=== PATIENT | female | born 1995 | race African-American/Black ===

== ENCOUNTER 2016-06-17 23:09 | Emergency (ER) | payer MEDICAID, OTHER, SELFPAY ==
[2016-06-17] MEDS ORDERED: Ondansetron HCl/PF 4 MG/2 ML Vial ONE (23:32)
[2016-06-17] MEDS ORDERED: Sodium Chloride 0.9% 1,000 ML ONE (23:32)
[2016-06-17] MEDS ORDERED: Pantoprazole 40 MG VIAL ONE (23:32)
[2016-06-17] MEDS ORDERED: Acetaminophen 500 MG TAB ONE (23:32)
[2016-06-17 23:42] LABS: Bilirubin Negative (Negative); Blood, Urine Negative (Negative); Glucose, Urine (Dipstick) Negative (Negative); Ketone, Urine Trace mg/dL (Negative); Nitrite Negative (Negative); Protein, Urine (Dipstick) Negative (Neg-Trace); Urobilinogen 0.2 mg/dL (0.2-1.0)
[2016-06-17 23:43] LABS: RBC/HPF None Seen HPF (0-3)
[2016-06-17 23:44] LABS: Bacteria/HPF 2+ HPF (None Seen)
[2016-06-17 23:51] LABS: Hematocrit 34.5 % (36.0-47.0); Mean Platelet Volume 7.1 fL (7.4-10.4); Neutrophil 50 % (42-75); Reactive Lymphocytes 3 % (0-10); Red Blood Cell (RBC) Count 4.33 mill/uL (4.20-5.40); White Blood Cell (WBC) Count 11.8 thou/uL (4.8-10.8)
[2016-06-18 00:02] LABS: ALT (SGPT) 15 U/L (0-55); AST (SGOT) 13 U/L (5-34); Alkaline Phosphatase 60 U/L (40-150); Anion Gap 14 mmol/L (10-20); BUN (Urea Nitrogen) 11 mg/dL (7.0-18.7); Bilirubin, Total 0.2 mg/dL (0.2-1.2); Calc. Creatinine Clearance 0 mL/min (70-130); Calcium 9.4 mg/dL (7.8-10.44); Carbon Dioxide 24 mmol/L (22-29); Chloride 107 mmol/L (98-107); Estimated GFR-MDRD 90; Globulin 3.7 g/dL (2.4-3.5); Lipase 36 U/L (8-78); Protein, Total 7.7 g/dL (6.0-8.3)
--- NOTE | 2016-06-18 00:47 | PICIS ---
[facility] EMERGENCY RECORD TRIAGE (23:16 EPIE) TRIAGE NOTES: Pt reports n/v/d since last night. Pt has vomited 3 times total and est 6 times diarrhea. Last vomit was 3 hours ago. Pt reports abdominal cramping with diarrhea. (23:16 EPIE) PATIENT: NAME: Rachell Smith, AGE: 21, GENDER: female, : Mon1995, TIME OF GREET: MonJun 17, 2016 23:10, PREFERRED LANGUAGE: Polish, ETHNICITY: Not or , ECODE BILLING MAP: [facility], SSN: [id number], Zip Code: [address], KG WEIGHT: 92.99, PHONE: , , , PERSON ID: [id number], PCP: none. (23:16 EPIE) COMPLAINT: VOMITING; DIARRHEA. (23:16 EPIE) ADMISSION: URGENCY: 4 Non Urgent, ADMISSION SOURCE: Home, TRANSPORT: CAR, BED: TRIAGE. (23:16 EPIE) TRIAGE SCREENING: Patient denies suicidal ideation, Patient denies presence of domestic violence. (23:18 EPIE) TREATMENTS IN PROGRESS: Treatments given Prehospital: none. (23:18 EPIE) PROVIDERS: TRIAGE NURSE: Laura Benton RN. (23:16 EPIE) VITAL SIGNS: BP 131/82, Pulse 86, Resp 20, (Non-Labored), Temp 97.9, (Oral), Pain 7, O2 Sat 99, on Room Air, Time 06/17/2016 23:14. (23:14 EPIE) KNOWN ALLERGIES No Known Drug Allergies CURRENT MEDICATIONS (23:17 EPIE) labetalol: TABLET : Strength - 100 mg : ORAL Patient Dose: UNK. VITAL SIGNS VITAL SIGNS: BP: 131/82, Pulse: 86, Resp: 20 (Non-Labored), Temp: 97.9 (Oral), Pain: 7, O2 sat: 99 on Room Air, Time: 06/17/2016 23:14. (23:14 EPIE) BP: 113/75, Pulse: 76, Resp: 18 (Non-Labored), Temp: 97.5 (Oral), Pain: 4, O2 sat: 100 on Room Air, Time: 06/18/2016 00:40. (Sat Jun 18, 2016 00:40 EPIE) NURSING ASSESSMENT: ABDOMEN (23:20 EPIE) CONSTITUTIONAL: Patient arrives ambulatory, Gait steady, History obtained from patient, Patient appears, uncomfortable, Patient cooperative, Patient alert, Oriented to person, place and time, Skin warm, Skin dry, Skin normal in color, Mucous membranes pink, Mucous membranes moist, Patient is well-groomed, Pt reports n/v/d since last night. Pt has vomited 3 times total and est 6 times diarrhea. Last vomit was 3 hours ago. Pt reports abdominal cramping with diarrhea. PAIN: cramping pain, diffusely, Onset of pain &a-1R&a+25V*p+0X*a3381F*c202B*c15G*c2P*p-0X&a-25V&a+1R Name: Rachell Smith : 1995 F21 MedRec: [id number] AcctNum: [id number] Prepared: Sat Jun 18, 2016 00:56 by Interface Page 1 of 11 pMD [facility] EMERGENCY RECORD 06/16/2016, intermittent, on a scale 0-10 patient rates pain as 7. ABDOMEN: Abdomen assessment findings include abdomen symmetrical, Abdomen soft, Associated with nausea, Associated with vomiting, history of vomiting, Number of times: 3, Associated with diarrhea, loose, Number of episodes: 6. LMP: First day last menstrual period, Last period started on 06/07/2016. GENITOURINARY FEMALE: no associated urinary complaints. NURSING PROCEDURE: DISCHARGE NOTE (Sat Jun 18, 2016 00:41 EPIE) DISCHARGE: Patient discharged to home, ambulating without assistance, driving self, unaccompanied, Summary of Care printed/ provided, Discharge instructions given to patient, Simple or moderate discharge teaching performed, Prescriptions given and instructions on side effects given, Name of prescription(s) given: macrobid, zofran, pepcid, Above person(s) verbalized understanding of discharge instructions and follow-up care. BELONGINGS: Belongings and valuables with patient upon arrival to the Emergency Department include:, Belongings and valuables with patient at time of discharge include:, Belongings remain with patient, Valuables remain with patient. NURSING PROCEDURE: IV PATIENT IDENITIFIER: Patient actively involved in identification process, Patient's identity verified by patient stating name, Patient's identity verified by patient stating date, Patient's identity verified by hospital ID bracelet. (23:35 [facility]) IV SITE 1: IV established, to the left antecubital, using a 20 gauge catheter, in one attempt, IV site prepped with Chloroprep, Saline lock established, Flushed with normal saline (mls): 10mLs, Labs drawn at time of placement, labeled in the presence of the patient and sent to lab, Notes: IV site C/D/I. no pain, redness, or swelling. IV start kit/extension tubing used. (23:35 [facility]) NOTES: Notes: IV DC with catheter intact. Pressure and dressing applied. (Sat Jun 18, 2016 00:40 EPIE) SAFETY: Side rails up, Cart/Stretcher in lowest position, Call light within reach, Hospital ID band on. (23:35 [facility]) NURSING PROCEDURE: NURSE NOTES NURSES NOTES: Notes: Patient resting with RR even and unlabored. No new complaints at this time. IV fluids infusing. Awaiting lab results. Warm blanket given for comfort and lights dimmed. Will give Tylenol after nausea medication has worked. (23:42 EPIE) Notes: Patient resting with RR even and unlabored. No new complaints at this time.Pt reports no nausea at this time and decreased abdominal cramping. NAD. ERMD talking with patient at this time. (Sat Jun 18, 2016 00:27 EPIE) &a-1R&a+25V*p+0X*x9616T*c202B*c15G*c2P*p-0X&a-25V&a+1R Name: Rachell Smith Elaine : 1995 F21 MedRec: [id number] AcctNum: [id number] Prepared: Sat Jun 18, 2016 00:56 by Interface Page 2 of 11 pMD [facility] EMERGENCY RECORD NURSING PROCEDURE: URINE COLLECTION (23:30 [facility]) PATIENT IDENTIFIER: Patient actively involved in identification process, Patient's identity verified by patient stating name, Patient's identity verified by patient stating date, Patient's identity verified by hospital ID bracelet. URINE COLLECTION FEMALE: Urine collected by void, urine yellow in color, and clear, Specimen labeled in the presence of the patient and sent to lab. SAFETY: Side rails up, Cart/Stretcher in lowest position, Call light within reach, Hospital ID band on. ORDER DETAILS Order Name: CBC with Differential, Status: Active, Time: 23:29 06/17/2016, User: [email or web address], - Ordered for: MD Liao John, - Entered by: MD Liao John - MonJun 17, 2016 23:29, - Quantity: 1, Order Name: Comprehensive Metabolic Panel, Status: Active, Time: 23:29 06/17/2016, User: KENDRA, - Ordered for: MD Liao John, - Entered by: MD Liao John - MonJun 17, 2016 23:29, - Quantity: 1, Order Name: Culture, Urine, Status: Active, Time: 00:36 06/18/2016, User: KENDRA, - Ordered for: MD Liao John, - Entered by: MD Liao John - [facility] [[email or web address]] Jun 18, 2016 00:36, - Quantity: 1, Order Name: Lipase, Status: Active, Time: 23:29 06/17/2016, User: KENDRA, - Ordered for: MD Liao John, - Entered by: MD Liao John - MonJun 17, 2016 23:29, - Quantity: 1, Order Name: Test, Urine (BHCG), Status: Active, Time: 23:29 06/17/2016, User: KENDRA, - Ordered for: MD Liao John, - Entered by: MD Liao John - MonJun 17, 2016 23:29, - Quantity: 1, Order Name: SALINE LOCK, Status: Done, Time: 23:39 06/17/2016, User: PETEY, - Ordered for: MD Liao John, - Entered by: MD Liao John - MonJun 17, 2016 23:29, - Quantity: 1, Order Name: Urinalysis w/ Rflx Microscopic, Status: Active, Time: 23:29 06/17/2016, User: [email or web address], - Ordered for: MD Liao John, - Entered by: MD Liao John - MonJun 17, 2016 23:29, - Quantity: 1. MEDICATION ADMINISTRATION SUMMARY &a-1R&a+25V*p+0X*m4588F*c202B*c15G*c2P*p-0X&a-25V&a+1R Name: Rachell Smith : 1995 F21 MedRec: [id number] AcctNum: [id number] Prepared: [facility] [[email or web address] Jun 18, 2016 00:56 by Interface Page 3 of 11 pMD [facility] EMERGENCY RECORD Drug Name: acetaminophen oral, Dose Ordered: 1000 mg, Route: Oral, Status: Given, Time: 23:51 06/17/2016, Drug Name: Protonix intravenous, Dose Ordered: 40 mg, Route: IV Push, Status: Given, Time: 23:39 06/17/2016, Drug Name: Zofran intravenous, Dose Ordered: 4 mg, Route: IV Push, Status: Given, Time: 23:37 06/17/2016, Drug Name: Normal Saline, Dose Ordered: 1000 mL, Route: IV Fluid Infusion, Status: Given, Time: 23:37 06/17/2016, Detailed record available in Medication Service section. MEDICATION SERVICE acetaminophen oral: Order: acetaminophen oral (acetaminophen) - Dose: 1000 mg : Oral Schedule: Now Ordered by: Jorge Luis Liao MD Entered by: Jorge Luis Liao MD MonJun 17, 2016 23:30 , Acknowledged by: Laura Benton RN MonJun 17, 2016 23:42 Documented as given by: Laura Benton RN MonJun 17, 2016 23:51 Patient, Medication, Dose, Route and Time verified prior to administration. Amount given: 1g, Site: Medication administered P.O., Correct patient, time, route, dose and medication confirmed prior to administration, Patient advised of actions and side-effects prior to administration, Allergies confirmed and medications reviewed prior to administration. Normal Saline: Order: Normal Saline (0.9 % sodium chloride) - Dose: 1000 mL : IV Fluid Infusion Schedule: Now Ordered by: Jorge Luis Liao MD Entered by: Jorge Luis Liao MD MonJun 17, 2016 23:29 Documented as given by: Laura Benton RN MonJun 17, 2016 23:37 Patient, Medication, Dose, Route and Time verified prior to administration. Amount given: 1L, IV SITE #1 IV fluids established for hydration, IV SITE #1 into left antecubital, IV SITE #1 1st bag hung, amount 1 Liter hung, IV SITE #1 bolus of 1000 ml established, via primary tubing, Catheter placement confirmed via flush prior to administration, IV site without signs or symptoms of infiltration during medication administration, No swelling during administration, No drainage during administration, IV flushed after administration, Correct patient, time, route, dose and medication confirmed prior to administration, Patient advised of actions and side-effects prior to administration, Allergies confirmed and medications reviewed prior to administration. : Follow Up : Response assessment performed, No signs or symptoms of allergic reaction noted, _IV SITE #1:_, IV fluid infusion discontinued, on MonJun 18, 2016 00:27, 50 minutes, ., Total amount infused: 1L, IV Line flushed after administration. (MonJun 18, 2016 00:27 EPIE) &a-1R&a+25V*p+0X*b9161K*c202B*c15G*c2P*p-0X&a-25V&a+1R Name: Rachell Smith Elaine : 1995 F21 MedRec: [id number] AcctNum: [id number] Prepared: MonJun 18, 2016 00:56 by Interface Page 4 of 11 D [facility] EMERGENCY RECORD Protonix intravenous: Order: Protonix intravenous (pantoprazole sodium) - Dose: 40 mg : IV Push Schedule: Now Ordered by: Jorge Luis Liao MD Entered by: Jorge Luis Liao MD MonJun 17, 2016 23:30 Documented as given by: Laura Benton RN MonJun 17, 2016 23:39 Patient, Medication, Dose, Route and Time verified prior to administration. Amount given: 40mg, IV SITE #1 IVP, initial medication, Slowly, Catheter placement confirmed via flush prior to administration, IV site without signs or symptoms of infiltration during medication administration, No swelling during administration, No drainage during administration, IV flushed after administration, Correct patient, time, route, dose and medication confirmed prior to administration, Patient advised of actions and side-effects prior to administration, Allergies confirmed and medications reviewed prior to administration. Zofran intravenous: Order: Zofran intravenous (ondansetron HCl) - Dose: 4 mg : IV Push Schedule: Now Ordered by: Jorge Luis Liao MD Entered by: Jorge Luis Liao MD MonJun 17, 2016 23:29 Documented as given by: Laura Benton RN MonJun 17, 2016 23:37 Patient, Medication, Dose, Route and Time verified prior to administration. Amount given: 4mg, IV SITE #1 IVP, initial medication, Slowly, Catheter placement confirmed via flush prior to administration, IV site without signs or symptoms of infiltration during medication administration, No swelling during administration, No drainage during administration, IV flushed after administration, Correct patient, time, route, dose and medication confirmed prior to administration, Patient advised of actions and side-effects prior to administration, Allergies confirmed and medications reviewed prior to administration. HPI NAUSEA/VOMITING/DIARRHEA (23:31 JOHE) CHIEF COMPLAINT: Patient presents for evaluation of nausea, Patient presents for evaluation of vomiting, Patient presents for evaluation of diarrhea. HISTORIAN: History provided by patient, Patient reports since last night around 2300, she has had 4 episodes of vomiting clear liquid, without blood or bile. Vomiting has been followed by approx. 6 episodes of loose stools, without blood or melena. Patient also reports intermittent, crampy, upper abdominal pain without radiation or migration of the pain. No exacerbating/relieving factors, and patient denies additional symptoms including F&C, urinary symptoms, vaginal bleeding and discharge. Patient reports some ill contacts with, "a stomach bug," at work. No travel or change in diet, no trauma. LOCATION FEMALE: Symptoms are localized, most severe in the upper abdomen, no radiation, No migration of pain. QUALITY: Pain is dull in nature, described &a-1R&a+25V*p+0X*u8240C*c202B*c15G*c2P*p-0X&a-25V&a+1R Name: Rachell Smith Elaine : 1995 F21 MedRec: [id number] AcctNum: [id number] Prepared: Sat Jun 18, 2016 00:56 by Interface Page 5 of 11 pMD [facility] EMERGENCY RECORD as cramping. SEVERITY: Maximum severity of symptoms moderate, Currently symptoms are moderate. TIME COURSE: Gradual onset of symptoms, 1, days priror to arrival, There has been no change in the patient's symptoms over time, are intermittent. ASSOCIATED WITH FEMALE: No associated recent antibiotic use, No associated bright red blood per rectum, No associated chills, No associated constipation, Associated with diarrhea, No associated fever, No associated flank pain, No associated groin pain, No associated hematemesis, No associated hematuria, No associated loss of appetite, No associated melena, Associated with nausea, No associated night sweats, No associated trauma, No associated recent travel, No associated inability to tolerate oral intake, No associated urinary tract infection signs or symptoms, Associated with vomiting, No associated vaginal discharge, No associated vaginal bleeding, No associated weight change, Denies any other complaints. EXACERBATED BY: Patient's condition exacerbated by food. RELIEVED BY: Patient's condition relieved by nothing because patient has not tried anything for relief. ROS (23:35 JOHE) CONSTITUTIONAL: Historian denies chills, denies fatigue, denies fever, denies lethargy, denies malaise, denies weight loss. EYES: Historian denies eye pain, denies vision changes. ENT: Historian denies drooling, denies otalgia, denies rhinorrhea, denies sore throat. CARDIOVASCULAR: Historian denies chest pain, denies syncope, denies palpitations. RESPIRATORY: Historian denies cough, denies shortness of breath, denies wheezing. GI: Historian reports abdominal pain, denies constipation, reports diarrhea, denies hematemesis, denies hematochezia, denies melena, reports nausea, reports vomiting. GENITOURINARY FEMALE: Historian denies dysuria, denies frequency, denies hematuria, denies urgency, denies urine output changes, denies vaginal bleeding, denies vaginal discharge. MUSCULOSKELETAL: Historian denies arthralgias, denies back pain, denies myalgias, denies neck pain. SKIN: Historian denies rash, denies skin changes. NEUROLOGIC: Historian denies confusion, denies dizziness, denies focal weakness, denies gait changes, denies headache, denies seizures. PSYCHIATRIC: Historian denies alcohol abuse, denies drug abuse. NOTES: All systems reviewed, negative except as described above. PAST MEDICAL HISTORY (23:18 EPIE) MEDICAL HISTORY: Flu vaccine not up to date, Tetanus not up to date, Pneumococcal vaccine not up to date. Hypertension with &a-1R&a+25V*p+0X*b0655I*c202B*c15G*c2P*p-0X&a-25V&a+1R Name: Rachell Smith : 1995 F21 MedRec: [id number] AcctNum: [id number] Prepared: Sat Jun 18, 2016 00:56 by Interface Page 6 of 11 pMD [facility] EMERGENCY RECORD . FEMALE SURGICAL HISTORY: Surgical history of section, Pilonidal cyst removed, Abscessx2 with general anesthesia, Surgical history of tonsillectomy. PSYCHIATRIC HISTORY: Psychiatric history includes, anxiety, depression, Psychiatric history includes previous inpatient psychiatric admissions, Date of last admission: 05/2013, Facility: [facility]. SOCIAL HISTORY: Patient denies alcohol use, Patient is a former drug user, abused marijuana, Patient currently uses tobacco, smokes cigarettes, Patient smokes ocassionally. PHYSICAL EXAM (23:36 JOHE) CONSTITUTIONAL: Vital signs reviewed, Patient appears non toxic, Patient alert and oriented to person, place and time, Appears well and comfortable, in NAD. Well-hydrated, cap refill < 2 sec, moist oral mucosal, good skin turgor. HEAD: Head exam normal, Head exam included findings of head atraumatic, normocephalic. EYES: Eye exam normal, Eye exam included findings of eyelids normal to inspection, Pupils equally round and reactive to light, Extraocular muscles intact, Conjunctiva normal. ENT: ENT exam normal, Pharynx exam normal, not injected, no swelling, symmetrical, Uvula exam normal, midline, no edema, Tonsil exam normal, not enlarged, no exudates, Mouth exam normal, mucous membranes moist, no drooling, no lesions, no lacerations, no tongue elevation. NECK: Neck exam normal, Neck exam included findings of normal range of motion, Trachea midline. RESPIRATORY CHEST: Respiratory and chest exam normal, Respiratory exam included findings of no respiratory distress, Breath sounds clear, No wheezing, No rales, No rhonchi, Breath sounds not absent, Breath sounds not diminished, Chest exam included findings of chest movement symmetrical, CTAB. CARDIOVASCULAR: Cardiovascular assessment normal, Cardiovascular exam included findings of heart rate regular rate and rhythm, Heart sounds normal, Pedal pulses normal, RRR, no R/M/G. + pulses all ext., no edema. ABDOMEN FEMALE: Abdominal exam included findings of abdomen tender, Bowel sounds normal, no distension, no mass, no pulsatile masses, no peritoneal signs, no rigidity, no guarding, no rebound, Soft, ND, mildly TTP epigastrium and periumbilical without guarding or rebound TTP. + BS, no masses or pulsations, no CVAT. No RUQ or RLQ tenderness. BACK: Back exam normal, Back exam included findings of normal inspection, range of motion normal, no costovertebral angle tenderness. UPPER EXTREMITY: Upper extremity exam normal, Upper extremity exam included findings of inspection normal, Range of motion normal, Radial pulse normal. &a-1R&a+25V*p+0X*w2395N*c202B*c15G*c2P*p-0X&a-25V&a+1R Name: Rachell Smith Elaine : 1995 F21 MedRec: [id number] AcctNum: [id number] Prepared: [facility] [[email or web address] Jun 18, 2016 00:56 by Interface Page 7 of 11 pMD [facility] EMERGENCY RECORD LOWER EXTREMITY: Lower extremity exam normal, Lower extremity exam included findings of inspection normal, Range of motion normal, Posterior tibial pulse normal, Pedal pulse normal, no edema, no calf tenderness, no palpable cords. NEURO: Neuro exam normal, [place] coma scale 15, Neuro exam findings include patient oriented to person, place and time, Speech normal, Gait normal, Cranial nerves intact, no focal motor deficits, no focal sensory deficits. SKIN: Skin exam normal, Skin exam included findings of skin warm, dry, and normal in color, no rash. LAB INTERPRETATION (Sat Jun 18, 2016 00:38 JOHE) INTERPRETATION: CBC abnormal, White blood cell count elevated, Hemoglobin decreased, Hematocrit decreased, Neutrophils normal, Chemistry normal, Liver functions normal, Urinalysis abnormal, positive for leukocytes, positive for bacteria, positive for ketones, Urine HCG negative. EVENTS TRANSFER: Triage to Emergency Triage. (23:17 EPIE) Emergency Triage to Emergency Room -03. (23:17 EPIE) Removed from Emergency Emergency Room -03. (Sat Jun 18, 2016 00:44 EPIE) DOCTOR NOTES (Sat Jun 18, 2016 00:36 JOHE) RE-EVALUATION: The patient's condition has improved. TEXT: Pt. reports nausea gone, and cramping improved. Tolerated PO liquids in ED. Abd. soft, ND, mildly TTP epigastrium without guarding or rebound TTP. + BS. Discussed results, and patient feels well enough to go home without imaging. Discussed that in the absence of imaging, patient will need close outpatient f/u for re-assessment if abdominal cramping persists (24h), and immediate return to ED for any new/worsening symptoms (fever, migration of pain, etc). Discussed differential, including gastroenteritis, UTI, early appendicitis, bowel obstruction, gastritis, etc. Patient verbalized understanding and agreed to f/u or return to ED. DATA REVIEWED: Lab data reviewed. PROBLEM LIST No recorded problems DIAGNOSIS ([facility] [[email or web address]] Jun 18, 2016 00:32 JOHE) FINAL: PRIMARY: Acute Gastroenteritis - presumed infectious, ADDITIONAL: epigastric abdominal pain, urinary tract infection. DISPOSITION PATIENT: Disposition Type: Discharge, Disposition: *Discharge Home, Condition: Good. ([facility] [email or web address] Jun 18, 2016 00:32 JOHE) Patient left the department. ([facility] [[email or web address]] Jun 18, 2016 00:44 EPIE) &a-1R&a+25V*p+0X*y8999K*c202B*c15G*c2P*p-0X&a-25V&a+1R Name: Rachell Smith : 1995 F21 MedRec: [id number] AcctNum: [id number] Prepared: [facility] [[email or web address]] Jun 18, 2016 00:56 by Interface Page 8 of 11 pMD [facility] EMERGENCY RECORD INSTRUCTION ([facility] [[email or web address]] Jun 18, 2016 00:33 JOHE) DISCHARGE: GASTROENTERITIS, VIRAL (4Y-ADULT), ABDOMINAL PAIN, POSSIBLE APPENDICITIS [FEMALE], UTI CYSTITIS FEMALE ADULT. FOLLOWUP: Follow up with Primary Care Physician in 1-2 days. SPECIAL: Follow-up with your PCP. PRESCRIPTION Macrobid: CAPSULE : 100 mg : ORAL : Quantity: 1 Unit: cap(s) Route: ORAL Schedule: 2 times a day Dispense: 10 Unit: cap(s) May substitute. Refills: No Refills . ([facility] [[email or web address]] Jun 18, 2016 00:32 JOHE) NOTES: No Refills. ([facility] [[email or web address]] Jun 18, 2016 00:32 JOHE) Zofran ODT: TABLET,DISINTEGRATING : 4 mg : ORAL : Quantity: 1 Unit: tab(s) Route: ORAL Schedule: every 8 hours PRN Dispense: 15 Unit: tab(s) May substitute. Refills: No Refills . ([facility] [[email or web address]] Jun 18, 2016 00:32 JOHE) NOTES: No Refills. ([facility] [[email or web address]] Jun 18, 2016 00:32 JOHE) Pepcid oral: TABLET : 40 mg : ORAL : Quantity: 1 Unit: tab(s) Route: ORAL Schedule: once a day (in the morning) Dispense: 15 Unit: tab(s) May substitute. Refills: No Refills . ([facility] [[email or web address]] Jun 18, 2016 00:33 JOHE) NOTES: No Refills. ([facility] [[email or web address]] Jun 18, 2016 00:33 JOHE) IMAGING *DISCHARGE INSTRUCTIONS RECEIPT: Image captured from scanner. ([facility] [[email or web address]] Jun 18, 2016 00:43 EPIE) Page 2 added. Image captured from scanner. ([facility] [[email or web address]] Jun 18, 2016 00:43 EPIE) *SUPPLY CHARGE SHEET: Image captured from scanner. ([facility] [[email or web address]] Jun 18, 2016 00:44 EPIE) ADMIN ([facility] [[email or web address]] Jun 18, 2016 00:39 JOHE) DIGITAL SIGNATURE: MD Liao John. RESULTS LABORATORY: Urine Microscopic Collection DT: MonJun 17, 2016 23:39, RBC/HPF None Seen HPF, Range (0-3), *WBC/HPF 11-20 - H HPF, Range (0-3), *Squamous Epithelial 7-10 - H HPF, Range (0-3), *Bacteria/HPF 2+ - H HPF, Range (None Seen). (23:48 JOHE) Urinalysis w/ Rflx Microscopic Collection DT: MonJun 17, 2016 23:39, Color Yellow , Range (Yellow), Clarity Clear , Range (Clear), Specific [place], Urine 1.025 , Range (1.002-1.036), pH, Urine 5.5 , Range (5.0-9.0), *Leukocyte Moderate - H , Range (Negative), &a-1R&a+25V*p+0X*g5494T*c202B*c15G*c2P*p-0X&a-25V&a+1R Name: Rachell Smith : 1995 F21 MedRec: [id number] AcctNum: [id number] Prepared: [facility] [[email or web address]] Jun 18, 2016 00:56 by Interface Page 9 of 11 pMD [facility] EMERGENCY RECORD Nitrite Negative , Range (Negative), Protein, Urine (Dipstick) Negative mg/dL, Range (Neg-Trace), Glucose, Urine (Dipstick) Negative mg/dL, Range (Negative), *Ketone, Urine Trace - H mg/dL, Range (Negative), Urobilinogen 0.2 mg/dL, Range (0.2-1.0), Bilirubin Negative , Range (Negative), Blood, Urine Negative , Range (Negative). (23:48 [facility]) Test, Urine (BHCG) Collection DT: MonJun 17, 2016 23:39, Test - Urine (BHCG) NEGATIVE , Range (NEGATIVE), Method of sensitivity- Indeterminant: results should be repeated, after 48 hours. Positive: results may be detected as early as 4-5 days before a first missed menses. Elimination of BHCG-, Elimination following first trimester D&C: 29-44 Days , Elimination following term : 8-24 Days , Specific [place] 1.025 , Range (1.002-1.036), A dilute urine specimen may, not contain player services representative levels of hCG. If is still, suspected, a first morning urine specimen OR a random blood specimen should, be obtained from the patient 48-72 hours later and re-tested. , . (23:48 [facility]) CBC with Differential Collection DT: MonJun 17, 2016 23:39, *White Blood Cell (WBC) Count 11.8 - H thou/uL, Range (4.8-10.8), Red Blood Cell (RBC) Count 4.33 mill/uL, Range (4.20-5.40), *Hemoglobin 11.2 - L g/dL, Range (12.0-16.0), *Hematocrit 34.5 - L %, Range (36.0-47.0), *Mean Corpuscular Volume 79.7 - L fl, Range (81.0-99.0), *Mean Corpuscular Hemoglobin 25.8 - L pg, Range (27.0-31.0), Mean Corpuscular HGB CONC 32.4 g/dL, Range (32.0-36.0), *RBC Distribution Width 15.0 - H %, Range (11.5-14.5), Platelet Count 343 thou/uL, Range (130-400), *Mean Platelet Volume 7.1 - L fL, Range (7.4-10.4), Neutrophil 50 %, Range (42-75), Lymphocytes 41 %, Range (21-51), Reactive Lymphocytes 3 %, Range (0-10), Monocytes 5 %, Range (0-10), Eosinophils 1 %, Range (0-10), PLT Morphology Comment Appears Adequate , RBC Morphology Normal . (23:55 [facility]) Lipase Collection DT: MonJun 17, 2016 23:39, Lipase 36 U/L, Range (8-78). (MonJun 18, 2016 00:04 [facility]) Comprehensive Metabolic Panel Collection DT: MonJun 17, 2016 23:39, &a-1R&a+25V*p+0X*e6954I*c202B*c15G*c2P*p-0X&a-25V&a+1R Name: Rachell Smith : 1995 F21 MedRec: [id number] AcctNum: [id number] Prepared: MonJun 18, 2016 00:56 by Interface Page 10 of 11 pMD [facility] EMERGENCY RECORD Sodium 141 mmol/L, Range (136-145), Potassium 3.6 mmol/L, Range (3.5-5.1), Chloride 107 mmol/L, Range (98-107), Carbon Dioxide 24 mmol/L, Range (22-29), Anion Gap 14 mmol/L, Range (10-20), BUN (Urea Nitrogen) 11 mg/dL, Range (7.0-18.7), Creatinine 0.93 mg/dL, Range (0.6-1.1), Estimated GFR-MDRD 90 , Reference Range for Estimated GFR: Greater than 90, mL/min/1.73 m2 NOTE: The MDRD equation has not been validated for use, with the elderly (over 70 years of age), women, patients with, serious comorbid condition or persons with extremes of body size, muscle, mass, or nutritional status. , Glucose 89 mg/dL, Range (70-105), Calcium 9.4 mg/dL, Range (7.8-10.44), Bilirubin, Total 0.2 mg/dL, Range (0.2-1.2), Protein, Total 7.7 g/dL, Range (6.0-8.3), NOTE: Plasma values are generally 0.3 to 0.5 g/dL higher than serum values, due to the presence of fibrinogen. , Albumin 4.0 g/dL, Range (3.5-5.0), *Globulin 3.7 - H g/dL, Range (2.4-3.5), *Alb/Glob Ratio 1.1 - L g/dL, Range (1.2-2.2), Alkaline Phosphatase 60 U/L, Range (40-150), AST (SGOT) 13 U/L, Range (5-34), ALT (SGPT) 15 U/L, Range (0-55). (Sat Jun 18, 2016 00:04 KENDRA) Jerome: EPIE=KIRAN Benton, Laura GARDNER=MD Yanni, Jorge Luis [facility]=KIRAN Hernadez, Indu &a-1R&a+25V*p+0X*c7469G*c202B*c15G*c2P*p-0X&a-25V&a+1R Name: Rachell Smith : 1995 F21 MedRec: [id number] AcctNum: [id number] Prepared: [facility] [[email or web address]] Jun 18, 2016 00:56 by Interface Page 11 of 11 pMD MTDD
--- NOTE | 2016-06-18 00:51 | ERRECORD ---
[facility] EMERGENCY RECORD HPI NAUSEA/VOMITING/DIARRHEA (23:31 [facility]) CHIEF COMPLAINT: Patient presents for evaluation of nausea, Patient presents for evaluation of vomiting, Patient presents for evaluation of diarrhea. HISTORIAN: History provided by patient, Patient reports since last night around 2300, she has had 4 episodes of vomiting clear liquid, without blood or bile. Vomiting has been followed by approx. 6 episodes of loose stools, without blood or melena. Patient also reports intermittent, crampy, upper abdominal pain without radiation or migration of the pain. No exacerbating/relieving factors, and patient denies additional symptoms including F&C, urinary symptoms, vaginal bleeding and discharge. Patient reports some ill contacts with, "a stomach bug," at work. No travel or change in diet, no trauma. LOCATION FEMALE: Symptoms are localized, most severe in the upper abdomen, no radiation, No migration of pain. QUALITY: Pain is dull in nature, described as cramping. SEVERITY: Maximum severity of symptoms moderate, Currently symptoms are moderate. TIME COURSE: Gradual onset of symptoms, 1, days priror to arrival, There has been no change in the patient's symptoms over time, are intermittent. ASSOCIATED WITH FEMALE: No associated recent antibiotic use, No associated bright red blood per rectum, No associated chills, No associated constipation, Associated with diarrhea, No associated fever, No associated flank pain, No associated groin pain, No associated hematemesis, No associated hematuria, No associated loss of appetite, No associated melena, Associated with nausea, No associated night sweats, No associated trauma, No associated recent travel, No associated inability to tolerate oral intake, No associated urinary tract infection signs or symptoms, Associated with vomiting, No associated vaginal discharge, No associated vaginal bleeding, No associated weight change, Denies any other complaints. EXACERBATED BY: Patient's condition exacerbated by food. RELIEVED BY: Patient's condition relieved by nothing because patient has not tried anything for relief. ROS (23:35 JO[facility]) CONSTITUTIONAL: Historian denies chills, denies fatigue, denies fever, denies lethargy, denies malaise, denies weight loss. EYES: Historian denies eye pain, denies vision changes. ENT: Historian denies drooling, denies otalgia, denies rhinorrhea, denies sore throat. CARDIOVASCULAR: Historian denies chest pain, denies syncope, denies palpitations. RESPIRATORY: Historian denies cough, denies shortness of breath, denies wheezing. GI: Historian reports abdominal pain, denies constipation, reports diarrhea, denies hematemesis, denies &a-1R&a+25V*p+0X*y1835V*c202B*c15G*c2P*p-0X&a-25V&a+1R Name: Rachell Smith : 1995 F21 MedRec: [id number] AcctNum: [id number] Prepared: Sat Jun 18, 2016 00:49 by Interface Page 1 of 5 pMD [facility] EMERGENCY RECORD hematochezia, denies melena, reports nausea, reports vomiting. GENITOURINARY FEMALE: Historian denies dysuria, denies frequency, denies hematuria, denies urgency, denies urine output changes, denies vaginal bleeding, denies vaginal discharge. MUSCULOSKELETAL: Historian denies arthralgias, denies back pain, denies myalgias, denies neck pain. SKIN: Historian denies rash, denies skin changes. NEUROLOGIC: Historian denies confusion, denies dizziness, denies focal weakness, denies gait changes, denies headache, denies seizures. PSYCHIATRIC: Historian denies alcohol abuse, denies drug abuse. NOTES: All systems reviewed, negative except as described above. PAST MEDICAL HISTORY (23:18 EPIE) MEDICAL HISTORY: Flu vaccine not up to date, Tetanus not up to date, Pneumococcal vaccine not up to date. Hypertension with . FEMALE SURGICAL HISTORY: Surgical history of section, Pilonidal cyst removed, Abscessx2 with general anesthesia, Surgical history of tonsillectomy. PSYCHIATRIC HISTORY: Psychiatric history includes, anxiety, depression, Psychiatric history includes previous inpatient psychiatric admissions, Date of last admission: 05/2013, Facility: [facility]. SOCIAL HISTORY: Patient denies alcohol use, Patient is a former drug user, abused marijuana, Patient currently uses tobacco, smokes cigarettes, Patient smokes ocassionally. KNOWN ALLERGIES No Known Drug Allergies CURRENT MEDICATIONS (23:17 EPIE) labetalol: TABLET : Strength - 100 mg : ORAL Patient Dose: UNK. VITAL SIGNS VITAL SIGNS: BP: 131/82, Pulse: 86, Resp: 20 (Non-Labored), Temp: 97.9 (Oral), Pain: 7, O2 sat: 99 on Room Air, Time: 06/17/2016 23:14. (23:14 EPIE) BP: 113/75, Pulse: 76, Resp: 18 (Non-Labored), Temp: 97.5 (Oral), Pain: 4, O2 sat: 100 on Room Air, Time: 06/18/2016 00:40. (Sat Jun 18, 2016 00:40 EPIE) PHYSICAL EXAM (23:36 JOHE) CONSTITUTIONAL: Vital signs reviewed, Patient appears non toxic, Patient alert and oriented to person, place and time, Appears well and comfortable, in NAD. Well-hydrated, cap refill < 2 sec, moist oral mucosal, good skin turgor. &a-1R&a+25V*p+0X*s2317F*c202B*c15G*c2P*p-0X&a-25V&a+1R Name: Rachell Smith : 1995 F21 MedRec: [id number] AcctNum: [id number] Prepared: Sat Jun 18, 2016 00:49 by Interface Page 2 of 5 pMD [facility] EMERGENCY RECORD HEAD: Head exam normal, Head exam included findings of head atraumatic, normocephalic. EYES: Eye exam normal, Eye exam included findings of eyelids normal to inspection, Pupils equally round and reactive to light, Extraocular muscles intact, Conjunctiva normal. ENT: ENT exam normal, Pharynx exam normal, not injected, no swelling, symmetrical, Uvula exam normal, midline, no edema, Tonsil exam normal, not enlarged, no exudates, Mouth exam normal, mucous membranes moist, no drooling, no lesions, no lacerations, no tongue elevation. NECK: Neck exam normal, Neck exam included findings of normal range of motion, Trachea midline. RESPIRATORY CHEST: Respiratory and chest exam normal, Respiratory exam included findings of no respiratory distress, Breath sounds clear, No wheezing, No rales, No rhonchi, Breath sounds not absent, Breath sounds not diminished, Chest exam included findings of chest movement symmetrical, CTAB. CARDIOVASCULAR: Cardiovascular assessment normal, Cardiovascular exam included findings of heart rate regular rate and rhythm, Heart sounds normal, Pedal pulses normal, RRR, no R/M/G. + pulses all ext., no edema. ABDOMEN FEMALE: Abdominal exam included findings of abdomen tender, Bowel sounds normal, no distension, no mass, no pulsatile masses, no peritoneal signs, no rigidity, no guarding, no rebound, Soft, ND, mildly TTP epigastrium and periumbilical without guarding or rebound TTP. + BS, no masses or pulsations, no CVAT. No RUQ or RLQ tenderness. BACK: Back exam normal, Back exam included findings of normal inspection, range of motion normal, no costovertebral angle tenderness. UPPER EXTREMITY: Upper extremity exam normal, Upper extremity exam included findings of inspection normal, Range of motion normal, Radial pulse normal. LOWER EXTREMITY: Lower extremity exam normal, Lower extremity exam included findings of inspection normal, Range of motion normal, Posterior tibial pulse normal, Pedal pulse normal, no edema, no calf tenderness, no palpable cords. NEURO: Neuro exam normal, Mamou coma scale 15, Neuro exam findings include patient oriented to person, place and time, Speech normal, Gait normal, Cranial nerves intact, no focal motor deficits, no focal sensory deficits. SKIN: Skin exam normal, Skin exam included findings of skin warm, dry, and normal in color, no rash. MEDICATION ADMINISTRATION SUMMARY Drug Name: acetaminophen oral, Dose Ordered: 1000 mg, Route: Oral, Status: Given, Time: 23:51 06/17/2016, Drug Name: Protonix intravenous, Dose Ordered: 40 mg, Route: IV Push, Status: Given, Time: 23:39 06/17/2016, &a-1R&a+25V*p+0X*c9007O*c202B*c15G*c2P*p-0X&a-25V&a+1R Name: Rachell Smith : 1995 F21 MedRec: [id number] AcctNum: [id number] Prepared: Sat Jun 18, 2016 00:49 by Interface Page 3 of 5 pMD [facility] EMERGENCY RECORD Drug Name: Zofran intravenous, Dose Ordered: 4 mg, Route: IV Push, Status: Given, Time: 23:37 06/17/2016, Drug Name: Normal Saline, Dose Ordered: 1000 mL, Route: IV Fluid Infusion, Status: Given, Time: 23:37 06/17/2016, Detailed record available in Medication Service section. DOCTOR NOTES ([facility] Jun 18, 2016 00:36 JOHE) RE-EVALUATION: The patient's condition has improved. TEXT: Pt. reports nausea gone, and cramping improved. Tolerated PO liquids in ED. Abd. soft, ND, mildly TTP epigastrium without guarding or rebound TTP. + BS. Discussed results, and patient feels well enough to go home without imaging. Discussed that in the absence of imaging, patient will need close outpatient f/u for re-assessment if abdominal cramping persists (24h), and immediate return to ED for any new/worsening symptoms (fever, migration of pain, etc). Discussed differential, including gastroenteritis, UTI, early appendicitis, bowel obstruction, gastritis, etc. Patient verbalized understanding and agreed to f/u or return to ED. DATA REVIEWED: Lab data reviewed. PROBLEM LIST No recorded problems DIAGNOSIS ([facility] Jun 18, 2016 00:32 JOHE) FINAL: PRIMARY: Acute Gastroenteritis - presumed infectious, ADDITIONAL: epigastric abdominal pain, urinary tract infection. PRESCRIPTION Macrobid: CAPSULE : 100 mg : ORAL : Quantity: 1 Unit: cap(s) Route: ORAL Schedule: 2 times a day Dispense: 10 Unit: cap(s) May substitute. Refills: No Refills . ([facility] Jun 18, 2016 00:32 JOHE) NOTES: No Refills. ([facility] Jun 18, 2016 00:32 JOHE) Zofran ODT: TABLET,DISINTEGRATING : 4 mg : ORAL : Quantity: 1 Unit: tab(s) Route: ORAL Schedule: every 8 hours PRN Dispense: 15 Unit: tab(s) May substitute. Refills: No Refills . ([facility] Jun 18, 2016 00:32 JOHE) NOTES: No Refills. ([facility] Jun 18, 2016 00:32 JOHE) Pepcid oral: TABLET : 40 mg : ORAL : Quantity: 1 Unit: tab(s) Route: ORAL Schedule: once a day (in the morning) Dispense: 15 Unit: tab(s) May substitute. Refills: No Refills . ([facility] Jun 18, 2016 00:33 JOHE) NOTES: No Refills. ([facility] Jun 18, 2016 00:33 JOHE) DISPOSITION PATIENT: Disposition Type: Discharge, Disposition: *Discharge &a-1R&a+25V*p+0X*b6738H*c202B*c15G*c2P*p-0X&a-25V&a+1R Name: Rachell Smith : 1995 F21 MedRec: [id number] AcctNum: [id number] Prepared: [facility] Jun 18, 2016 00:49 by Interface Page 4 of 5 pMD [facility] EMERGENCY RECORD Home, Condition: Good. ([facility] Jun 18, 2016 00:32 JOHE) Patient left the department. ([facility] Jun 18, 2016 00:44 EPIE) Jerome: KENZIE=KIRAN Benton, Laura GARDNER=MD Yanni, Jorge Luis &a-1R&a+25V*p+0X*h8023S*c202B*c15G*c2P*p-0X&a-25V&a+1R Name: Rachell Smith : 1995 F21 MedRec: [id number] AcctNum: [id number] Prepared: [facility] Jun 18, 2016 00:49 by Interface Page 5 of 5 pMD MTDD
--- NOTE | 2016-06-18 00:51 | ERRECORD ---
[facility] EMERGENCY RECORD HPI NAUSEA/VOMITING/DIARRHEA (23:31 JOHE) CHIEF COMPLAINT: Patient presents for evaluation of nausea, Patient presents for evaluation of vomiting, Patient presents for evaluation of diarrhea. HISTORIAN: History provided by patient, Patient reports since last night around 2300, she has had 4 episodes of vomiting clear liquid, without blood or bile. Vomiting has been followed by approx. 6 episodes of loose stools, without blood or melena. Patient also reports intermittent, crampy, upper abdominal pain without radiation or migration of the pain. No exacerbating/relieving factors, and patient denies additional symptoms including F&C, urinary symptoms, vaginal bleeding and discharge. Patient reports some ill contacts with, "a stomach bug," at work. No travel or change in diet, no trauma. LOCATION FEMALE: Symptoms are localized, most severe in the upper abdomen, no radiation, No migration of pain. QUALITY: Pain is dull in nature, described as cramping. SEVERITY: Maximum severity of symptoms moderate, Currently symptoms are moderate. TIME COURSE: Gradual onset of symptoms, 1, days priror to arrival, There has been no change in the patient's symptoms over time, are intermittent. ASSOCIATED WITH FEMALE: No associated recent antibiotic use, No associated bright red blood per rectum, No associated chills, No associated constipation, Associated with diarrhea, No associated fever, No associated flank pain, No associated groin pain, No associated hematemesis, No associated hematuria, No associated loss of appetite, No associated melena, Associated with nausea, No associated night sweats, No associated trauma, No associated recent travel, No associated inability to tolerate oral intake, No associated urinary tract infection signs or symptoms, Associated with vomiting, No associated vaginal discharge, No associated vaginal bleeding, No associated weight change, Denies any other complaints. EXACERBATED BY: Patient's condition exacerbated by food. RELIEVED BY: Patient's condition relieved by nothing because patient has not tried anything for relief. ROS (23:35 JOHE) CONSTITUTIONAL: Historian denies chills, denies fatigue, denies fever, denies lethargy, denies malaise, denies weight loss. EYES: Historian denies eye pain, denies vision changes. ENT: Historian denies drooling, denies otalgia, denies rhinorrhea, denies sore throat. CARDIOVASCULAR: Historian denies chest pain, denies syncope, denies palpitations. RESPIRATORY: Historian denies cough, denies shortness of breath, denies wheezing. GI: Historian reports abdominal pain, denies constipation, reports diarrhea, denies hematemesis, denies &a-1R&a+25V*p+0X*[id number]*c202B*c15G*c2P*p-0X&a-25V&a+1R Name: Rachell Smith : 1995 F21 MedRec: [id number] AcctNum: [id number] Prepared: Sat Jun 18, 2016 00:49 by Interface Page [address] [facility] EMERGENCY RECORD hematochezia, denies melena, reports nausea, reports vomiting. GENITOURINARY FEMALE: Historian denies dysuria, denies frequency, denies hematuria, denies urgency, denies urine output changes, denies vaginal bleeding, denies vaginal discharge. MUSCULOSKELETAL: Historian denies arthralgias, denies back pain, denies myalgias, denies neck pain. SKIN: Historian denies rash, denies skin changes. NEUROLOGIC: Historian denies confusion, denies dizziness, denies focal weakness, denies gait changes, denies headache, denies seizures. PSYCHIATRIC: Historian denies alcohol abuse, denies drug abuse. NOTES: All systems reviewed, negative except as described above. PAST MEDICAL HISTORY (23:18 EPIE) MEDICAL HISTORY: Flu vaccine not up to date, Tetanus not up to date, Pneumococcal vaccine not up to date. Hypertension with . FEMALE SURGICAL HISTORY: Surgical history of section, Pilonidal cyst removed, Abscessx2 with general anesthesia, Surgical history of tonsillectomy. PSYCHIATRIC HISTORY: Psychiatric history includes, anxiety, depression, Psychiatric history includes previous inpatient psychiatric admissions, Date of last admission: 05/2013, Facility: [facility]. SOCIAL HISTORY: Patient denies alcohol use, Patient is a former drug user, abused marijuana, Patient currently uses tobacco, smokes cigarettes, Patient smokes ocassionally. KNOWN ALLERGIES No Known Drug Allergies CURRENT MEDICATIONS (23:17 EPIE) labetalol: TABLET : Strength - 100 mg : ORAL Patient Dose: UNK. VITAL SIGNS VITAL SIGNS: BP: 131/82, Pulse: 86, Resp: 20 (Non-Labored), Temp: 97.9 (Oral), Pain: 7, O2 sat: 99 on Room Air, Time: 06/17/2016 23:14. (23:14 EPIE) BP: 113/75, Pulse: 76, Resp: 18 (Non-Labored), Temp: 97.5 (Oral), Pain: 4, O2 sat: 100 on Room Air, Time: 06/18/2016 00:40. (Sat Jun 18, 2016 00:40 EPIE) PHYSICAL EXAM (23:36 JOHE) CONSTITUTIONAL: Vital signs reviewed, Patient appears non toxic, Patient alert and oriented to person, place and time, Appears well and comfortable, in NAD. Well-hydrated, cap refill < 2 sec, moist oral mucosal, good skin turgor. &a-1R&a+25V*p+0X*[id number]*c202B*c15G*c2P*p-0X&a-25V&a+1R Name: Rachell Smith : 1995 F21 MedRec: [id number] AcctNum: [id number] Prepared: Sat Jun 18, 2016 00:49 by Interface Page [address] [facility] EMERGENCY RECORD HEAD: Head exam normal, Head exam included findings of head atraumatic, normocephalic. EYES: Eye exam normal, Eye exam included findings of eyelids normal to inspection, Pupils equally round and reactive to light, Extraocular muscles intact, Conjunctiva normal. ENT: ENT exam normal, Pharynx exam normal, not injected, no swelling, symmetrical, Uvula exam normal, midline, no edema, Tonsil exam normal, not enlarged, no exudates, Mouth exam normal, mucous membranes moist, no drooling, no lesions, no lacerations, no tongue elevation. NECK: Neck exam normal, Neck exam included findings of normal range of motion, Trachea midline. RESPIRATORY CHEST: Respiratory and chest exam normal, Respiratory exam included findings of no respiratory distress, Breath sounds clear, No wheezing, No rales, No rhonchi, Breath sounds not absent, Breath sounds not diminished, Chest exam included findings of chest movement symmetrical, CTAB. CARDIOVASCULAR: Cardiovascular assessment normal, Cardiovascular exam included findings of heart rate regular rate and rhythm, Heart sounds normal, Pedal pulses normal, RRR, no R/M/G. + pulses all ext., no edema. ABDOMEN FEMALE: Abdominal exam included findings of abdomen tender, Bowel sounds normal, no distension, no mass, no pulsatile masses, no peritoneal signs, no rigidity, no guarding, no rebound, Soft, ND, mildly TTP epigastrium and periumbilical without guarding or rebound TTP. + BS, no masses or pulsations, no CVAT. No RUQ or RLQ tenderness. BACK: Back exam normal, Back exam included findings of normal inspection, range of motion normal, no costovertebral angle tenderness. UPPER EXTREMITY: Upper extremity exam normal, Upper extremity exam included findings of inspection normal, Range of motion normal, Radial pulse normal. LOWER EXTREMITY: Lower extremity exam normal, Lower extremity exam included findings of inspection normal, Range of motion normal, Posterior tibial pulse normal, Pedal pulse normal, no edema, no calf tenderness, no palpable cords. NEURO: Neuro exam normal, [place] coma scale 15, Neuro exam findings include patient oriented to person, place and time, Speech normal, Gait normal, Cranial nerves intact, no focal motor deficits, no focal sensory deficits. SKIN: Skin exam normal, Skin exam included findings of skin warm, dry, and normal in color, no rash. MEDICATION ADMINISTRATION SUMMARY Drug Name: acetaminophen oral, Dose Ordered: 1000 mg, Route: Oral, Status: Given, Time: 23:51 06/17/2016, Drug Name: Protonix intravenous, Dose Ordered: 40 mg, Route: IV Push, Status: Given, Time: 23:39 06/17/2016, &a-1R&a+25V*p+0X*[id number]*c202B*c15G*c2P*p-0X&a-25V&a+1R Name: Rachell Smith : 1995 F21 MedRec: [id number] AcctNum: [id number] Prepared: Sat Jun 18, 2016 00:49 by Interface Page [address] [facility] EMERGENCY RECORD Drug Name: Zofran intravenous, Dose Ordered: 4 mg, Route: IV Push, Status: Given, Time: 23:37 06/17/2016, Drug Name: Normal Saline, Dose Ordered: 1000 mL, Route: IV Fluid Infusion, Status: Given, Time: 23:37 06/17/2016, Detailed record available in Medication Service section. DOCTOR NOTES ([facility], [place] Jun 18, 2016 00:36 JOHE) RE-EVALUATION: The patient's condition has improved. TEXT: Pt. reports nausea gone, and cramping improved. Tolerated PO liquids in ED. Abd. soft, ND, mildly TTP epigastrium without guarding or rebound TTP. + BS. Discussed results, and patient feels well enough to go home without imaging. Discussed that in the absence of imaging, patient will need close outpatient f/u for re-assessment if abdominal cramping persists (24h), and immediate return to ED for any new/worsening symptoms (fever, migration of pain, etc). Discussed differential, including gastroenteritis, UTI, early appendicitis, bowel obstruction, gastritis, etc. Patient verbalized understanding and agreed to f/u or return to ED. DATA REVIEWED: Lab data reviewed. PROBLEM LIST No recorded problems DIAGNOSIS ([facility], [place] Jun 18, 2016 00:32 JOHE) FINAL: PRIMARY: Acute Gastroenteritis - presumed infectious, ADDITIONAL: epigastric abdominal pain, urinary tract infection. PRESCRIPTION Macrobid: CAPSULE : 100 mg : ORAL : Quantity: 1 Unit: cap(s) Route: ORAL Schedule: 2 times a day Dispense: 10 Unit: cap(s) May substitute. Refills: No Refills . ([facility], [place] Jun 18, 2016 00:32 JOHE) NOTES: No Refills. ([facility], [place] Jun 18, 2016 00:32 JOHE) Zofran ODT: TABLET,DISINTEGRATING : 4 mg : ORAL : Quantity: 1 Unit: tab(s) Route: ORAL Schedule: every 8 hours PRN Dispense: 15 Unit: tab(s) May substitute. Refills: No Refills . ([facility], [place] Jun 18, 2016 00:32 JOHE) NOTES: No Refills. ([facility], [place] Jun 18, 2016 00:32 JOHE) Pepcid oral: TABLET : 40 mg : ORAL : Quantity: 1 Unit: tab(s) Route: ORAL Schedule: once a day (in the morning) Dispense: 15 Unit: tab(s) May substitute. Refills: No Refills . ([facility], [place] Jun 18, 2016 00:33 JOHE) NOTES: No Refills. ([facility], [place] Jun 18, 2016 00:33 JOHE) DISPOSITION PATIENT: Disposition Type: Discharge, Disposition: *Discharge &a-1R&a+25V*p+0X*[id number]*c202B*c15G*c2P*p-0X&a-25V&a+1R Name: Rachell Smith : 1995 F21 MedRec: [id number] AcctNum: [id number] Prepared: [facility], [place] Jun 18, 2016 00:49 by Interface Page [address] [facility] EMERGENCY RECORD Home, Condition: Good. ([facility], [place] Jun 18, 2016 00:32 JOHE) Patient left the department. ([facility], [place] Jun 18, 2016 00:44 EPIE) Jerome: KENZIE=KIRAN Benton, Laura GARDNER=MD Yanni, Jorge Luis &a-1R&a+25V*p+0X*[id number]*c202B*c15G*c2P*p-0X&a-25V&a+1R Name: Rachell Smith : 1995 F21 MedRec: [id number] AcctNum: [id number] Prepared: [facility], [place] Jun 18, 2016 00:49 by Interface Page 5 of 5 pMD MTDD
== END 2016-06-18 00:43 | disposition home or self-care (01) ==
LOC: NAV ERS 23:09
DX: K52.9 Noninfective gastroenteritis and colitis, unspecified (principal); N39.0 Urinary tract infection, site not specified; F41.9 Anxiety disorder, unspecified; F32.9 Major depressive disorder, single episode, unspecified; F17.210 Nicotine dependence, cigarettes, uncomplicated
CPT/HCPCS: 36415; 80053; 81003; 81015; 81025; 83690; 85025; 87086; 96361; 96374; 96375; C9113; J2405; J7050

== ENCOUNTER 2016-09-12 12:54 | Emergency (ER) | payer OTHER ==
[2016-09-12 14:12] LABS: Bilirubin Negative (Negative); Blood, Urine Negative (Negative); Clarity Clear (Clear); Glucose, Urine (Dipstick) Negative (Negative); Leukocyte Small (Negative); Nitrite Negative (Negative); Protein, Urine (Dipstick) Negative (Neg-Trace); Urobilinogen 0.2 mg/dL (0.2-1.0)
[2016-09-12 14:17] LABS: Pregnancy Test - Urine (BHCG) NEGATIVE (NEGATIVE); Pregu Control Bar Appear? YES (CONTROL BAR)
[2016-09-12 14:22] LABS: Bacteria/HPF Rare-Few HPF (None Seen); Other Microscopic Description NO; RBC/HPF None Seen HPF (0-3); Squamous Epithelial 0-3 HPF (0-3)
[2016-09-12] MEDS ORDERED: Meclizine HCl 25 MG TAB ONE (14:53)
== END 2016-09-12 15:00 | disposition home or self-care (01) ==
LOC: NAV ERS 12:54
DX: E86.0 Dehydration (principal); H81.399 Other peripheral vertigo, unspecified ear; F17.210 Nicotine dependence, cigarettes, uncomplicated
CPT/HCPCS: 81003; 81015; 81025; 99284